=== PATIENT | female | born 2000 | race Caucasian/White ===

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

== ENCOUNTER → 2020-05-01 | Outpatient (REF) | payer OTHER ==
[2020-05-01 18:34] LABS: HEMATOCRIT 41.2 % (36.0-47.0); HEMOGLOBIN 13.3 g/dl (12.0-15.5); MEAN CORPUSCULAR HEMOGLOBIN 28.1 pg (27.0-33.0); MEAN CORPUSCULAR HGB CONC 32.3 g/dl (32.0-36.5); MEAN CORPUSCULAR VOLUME 86.9 fl (80.0-96.0); PLATELET COUNT, AUTOMATED 247 10^3/uL (150-450); RED BLOOD COUNT 4.74 10^6/uL (4.00-5.40)
[2020-05-01 20:30] LABS: HCG, SERUM QUANTITATIVE 115195 MIU/ML; HEPATITIS C VIRUS ABY INDEX < 0.0 INDEX (<0.8); HIV 1&2 SCREEN CENTAUR NEGATIVE (NEGATIVE)
== END ==
LOC: M LAB REF 16:14
PROVIDERS: ATTEND Advanced Practice Midwife
DX: Z32.01 Encounter for pregnancy test, result positive (principal)

== ENCOUNTER → 2020-05-10 | Outpatient (CLI) | payer OTHER ==
--- NOTE | 2020-05-10 13:50 | REP ---
INDICATION: DATING VIABILITY COMPARISON: None. TECHNIQUE: Transabdominal 1st trimester obstetrical ultrasound with color Doppler evaluation. FINDINGS: Single live early intrauterine is appreciated. Gestational sac with yolk sac and pole identified. [place]-rump length of 35 mm corresponds to 10 weeks 3 days gestational age with estimated date of delivery 12/03/2020. heart rate equals 173 beats per minute. No gross abnormalities are identified. Left corpus luteal cyst noted. IMPRESSION: Single live early intrauterine at 10 weeks 3 days gestational age. Complete anatomical assessment should be performed and 19-20 weeks. <Electronically signed by Filiberto Verma > 05/10/20 [id number]
== END ==
LOC: M RAD 13:15
PROVIDERS: ATTEND Advanced Practice Midwife
DX: O36.80X0 Pregnancy with inconclusive fetal viability, not applicable or unspecified (principal)

== ENCOUNTER 2020-08-26 12:56 | Outpatient (CLI) | payer OTHER ==
[~2020-08-26] VITALS: Ht 175.3 cm; Wt 94.4 kg
[2020-08-26 13:14] VITALS: BP 128/73
[2020-08-26] MEDS ORDERED: PRENTAB9 PO (13:16)
--- NOTE | 2020-08-26 14:04 | IPNPDOC ---
Text Note Date of Service The patient was seen on 08/26/20. NOTE S: 20 yo G1 at 25 6/7 weeks presents with no movement since yesterday. Pt of CW, / [place]. O: AVSS NAD Abd: NT, gravid FHT: Category I toco: none bedside ultrasound: breech, nl SYLVAIN, numerous movements observed. A/P 20 yo G1 at 25 6/7 weeks with reassuring testing Pt able to feel movements in triage Pt able to feel movements observed during ultrasound Pt reassured f-u [facility] as scheduled VS,Fishbone, I+O VS, Fishbone, I+O Vital Signs Date Time Temp Pulse Resp B/P (MAP) Pulse Ox O2 Delivery O2 Flow Rate FiO2 08/26/20 13:14 99.8 72 18 128/73 (91) IVAN BHAGAT MD Aug 26, 2020 14:03
== END 2020-08-26 14:00 | disposition home or self-care (01) ==
LOC: M LDO 12:56
PROVIDERS: ATTEND Specialist
DX: O36.8120 Decreased fetal movements, second trimester, not applicable or unspecified (principal); Z3A.25 25 weeks gestation of pregnancy; Z79.899 Other long term (current) drug therapy
CPT/HCPCS: 76815; G0378; G0463

== ENCOUNTER → 2020-09-15 | Outpatient (CLI) | payer OTHER ==
[~2020-09-15] MED LIST: PRENTAB9 PO
[2020-09-15 13:42] LABS: HEMATOCRIT 40.7 % (36.0-47.0); HEMOGLOBIN 13.5 g/dl (12.0-15.5); MEAN CORPUSCULAR HEMOGLOBIN 29.5 pg (27.0-33.0); MEAN CORPUSCULAR HGB CONC 33.2 g/dl (32.0-36.5); MEAN CORPUSCULAR VOLUME 88.9 fl (80.0-96.0); PLATELET COUNT, AUTOMATED 213 10^3/uL (150-450); RED BLOOD COUNT 4.58 10^6/uL (4.00-5.40); WHITE BLOOD COUNT 10.9 10^3/uL (4.0-10.0)
== END ==
LOC: M LAB 11:58
PROVIDERS: ATTEND Advanced Practice Midwife
DX: Z34.02 Encounter for supervision of normal first pregnancy, second trimester (principal)